=== PATIENT | male | born 1975 | race Caucasian/White ===

== ENCOUNTER 2017-02-03 00:42 | Emergency (ER) | payer BC, OTHER ==
[2017-02-03 01:00] VITALS: BP 135/84; PULSE 79; TEMP 97; BMI 26.4
--- NOTE | 2017-02-03 01:39 | PDOC ---
History of Present Illness - General History Source: Patient, EMS, Spouse Exam Limitations: No Limitations - History of Present Illness Initial Comments: 02/03/17 01:52 EDT The patient is a 41 year old male, with a significant past medical history of hypothyroidism, who presents to the emergency department BIBA s/p overdosing on Percocet earlier this evening. Patient reports he was at home, where he ground up two 30 mg Percocet pills and sniffed them. Patient reports losing consciousness slowly after. Patient reports he does not know what time this occurred at. He reports his partner found him on the floor unresponsive and activated EMS. Patient denies any previous history of a overdose. He denies any chest pain, shortness of breath, diaphoresis, or palpitations. He denies any fever, chills, headache, or dizziness. He denies any other drug use. Allergies: NKDA Past Surgical History: None reported Social History: Percocet use. Current everyday smoker. No ETOH use. <Galindo Posey - Last Filed: 02/03/17 01:52 EDT> <Alise Sung - Last Filed: 02/04/17 01:02> - General Chief Complaint: Overdose Stated Complaint: Overdose Time Seen by Provider: 02/03/17 01:13 EDT Past History <Galindo Posey - Last Filed: 02/03/17 01:52 EDT> - Past Medical History COPD: No Thyroid Disease: Yes (HYPOTHYROIDISM) - Immunization History Td Vaccination: Yes Immunization Up to Date: Yes - Suicide/Smoking/Psychosocial Hx Smoking Status: No Smoking History: Current every day smoker Have you smoked in the past 12 months: Yes Number of Cigarettes Smoked Daily: 20 Information on smoking cessation initiated: No 'Breaking Loose' booklet given: 11/15/13 Hx Alcohol Use: No Drug/Substance Use Hx: Yes Substance Use Type: None <Alise Sung - Last Filed: 02/04/17 01:02> - Past Medical History Allergies/Adverse Reactions: Allergies Allergy/AdvReac Type Severity Reaction Status Date / Time No Known Allergies Allergy Unverified 02/03/17 01:00 EDT Home Medications: Ambulatory Orders Cephalexin [Keflex] 500 mg PO BID #10 capsule 02/18/15 Levothyroxine [Synthroid -] 50 mcg PO DAILY 02/18/15 Review of Systems - Review of Systems Able to Perform ROS?: Yes Comments:: 02/03/17 01:52 EDT GENERAL/CONSTITUTIONAL: Yes overdose. No fever or chills. No weakness. HEAD, EYES, EARS, NOSE AND THROAT: No change in vision. No ear pain or discharge. No sore throat. CARDIOVASCULAR: No chest pain or shortness of breath. RESPIRATORY: No cough, wheezing, or hemoptysis. GASTROINTESTINAL: No nausea, vomiting, diarrhea or constipation. GENITOURINARY: No dysuria, frequency, or change in urination. MUSCULOSKELETAL: No joint or muscle swelling or pain. No neck or back pain. SKIN: No rash NEUROLOGIC: Yes loss of consciousness. No headache, vertigo, or change in strength/sensation. ENDOCRINE: No increased thirst. No abnormal weight change. HEMATOLOGIC/LYMPHATIC: No anemia, easy bleeding, or history of blood clots. ALLERGIC/IMMUNOLOGIC: No hives or skin allergy. <Galindo Posey - Last Filed: 02/03/17 01:52 EDT> *Physical Exam - Vital Signs Last Vital Signs Temp Pulse Resp BP Pulse Ox 97 F L 79 18 135/84 100 02/03/17 00:55 02/03/17 00:55 02/03/17 00:55 02/03/17 00:55 02/03/17 00:55 - Physical Exam Comments: 02/03/17 01:53 EDT GENERAL: Awake, alert, and fully oriented, in no acute distress HEAD: No signs of trauma EYES: PERRLA, EOMI, sclera anicteric, conjunctiva clear ENT: Auricles normal inspection, hearing grossly normal, nares patent, oropharynx clear without exudates. Moist mucosa NECK: Normal ROM, supple, no lymphadenopathy, JVD, or masses LUNGS: Breath sounds equal, clear to auscultation bilaterally. No wheezes, and no crackles HEART: Regular rate and rhythm, normal S1 and S2, no murmurs, rubs or gallops ABDOMEN: Soft, nontender, normoactive bowel sounds. No guarding, no rebound. No masses EXTREMITIES: Normal range of motion, no edema. No clubbing or cyanosis. No cords, erythema, or tenderness NEUROLOGICAL: Cranial nerves II through XII grossly intact. Normal speech, normal gait SKIN: Warm, Dry, normal turgor, no rashes or lesions noted. PSYCH: Anxious appearing. <Galindo Posey - Last Filed: 02/03/17 01:52 EDT> - Vital Signs Last Vital Signs Temp Pulse Resp BP Pulse Ox 97 F L 79 18 135/84 100 02/03/17 00:55 02/03/17 00:55 02/03/17 00:55 02/03/17 00:55 02/03/17 00:55 <Alise Sung - Last Filed: 02/04/17 01:02> Medical Decision Making - Medical Decision Making 02/04/17 00:59 Pt snorted percocets and was found on the bathroom floor by galina trevino, who was visiting him in [place] from . She got nervous and called 911, despite the fact that he is a perc abuser and has done this many times. EMS came and pt was awake and he was transferred to the ER. In the ER pt is alert and awake and pacing about and refusing admission to detox, despite the fact that detox has a bed for him. His medical exam is normal, and he doesn't require any blood testing or medical intervention at this time. Exam is normal. Pt and I and galina trevino had a long converation. Pt decided he wants to go home. Refusing intervention at this time. Stable for discharge. <Alise Sung - Last Filed: 02/04/17 01:02> *DC/Admit/Observation/Transfer - Attestations Scribe Attestion: 02/03/17 01:54 EDT Documentation prepared by Galindo Posey, acting as resident medical officer for Alise Sung MD. <Galindo Posey - Last Filed: 02/03/17 01:52 EDT> <Alise Sung - Last Filed: 02/04/17 01:02> Diagnosis at time of Disposition: Percocet use disorder, moderate - Discharge Dispostion Disposition: HOME Condition at time of disposition: Stable - Referrals Referrals: Antonio Zamudio MD [Staff Physician] - - Patient Instructions Printed Discharge Instructions: Drug Abuse and Drug Addiction
== END 2017-02-03 01:35 | disposition home or self-care (01) ==
LOC: JER 00:42
DX: F11.10 Opioid abuse, uncomplicated (principal); F17.210 Nicotine dependence, cigarettes, uncomplicated; E03.9 Hypothyroidism, unspecified
CPT/HCPCS: 99281-25; 99282-25

== ENCOUNTER 2020-05-07 16:57 | Emergency (ER) | payer BC | END 2020-05-07 17:45 | disposition home or self-care (01) | LOC: JVIRT 16:57 | DX: Z20.822 Contact with and (suspected) exposure to COVID-19 (principal) | CPT/HCPCS: C9803; G2251-GT; Q3014-GT; U0003 ==

== ENCOUNTER 2020-06-20 13:26 | Emergency (ER) | payer BC | END 2020-06-20 14:52 | disposition home or self-care (01) | LOC: JVIRT 13:26 | DX: Z11.52 Encounter for screening for COVID-19 (principal) | CPT/HCPCS: C9803; G2251-GT; U0003 ==